=== PATIENT | female | born 1950 | race Caucasian/White ===

== ENCOUNTER → 2019-04-13 | Outpatient (CLI) | payer MEDICARE, OTHER ==
[~2019-04-13] MED LIST: ACET500T68 PO; AMOX1TAB11 PO; ASCO10002 PO; ASPI-630 PO; CA C1TAB36 PO; CLOP75TA PO; DULO60CA6 PO; LIDO700A21 TP; LOVA20TA2 PO; METH750T2 PO; METO-239 PO; OMEG100021 PO; OXYC1TAB15 PO; OXYC5CAP PO; OXYM30SP17 NS; PANT20TA2 PO; POLY17PO29 PO; PREN1TAB58 PO; UBID100C26 PO; [UNRECOGNIZED DRUG - REMARK] TP
[2019-04-13 16:06] LABS: BASO # 0.1 x10^3/uL (0.0-0.2); BASO % 1 % (0-3); EOS # 0.2 x10^3/uL (0.0-0.7); EOS % 2 % (0-3); HEMATOCRIT 36.1 % (36.0-47.0); LYMPH # 1.6 x10^3/uL (1.0-4.8); LYMPH % 21 % (24-48); MEAN CORPUSCULAR HEMOGLOBIN 33 pg (25-35); MEAN CORPUSCULAR HGB CONC 33 g/dL (31-37); MEAN CORPUSCULAR VOLUME 98 fL (79-100); MONO # 0.6 x10^3/uL (0.0-1.1); MONO % 9 % (0-9); NEUT # 4.9 x10^3/uL (1.8-7.7); NEUT % 67 % (31-73); PLATELET COUNT 318 x10^3/uL (140-400); RED BLOOD COUNT 3.68 x10^6/uL (3.50-5.40); RED CELL DISTRIBUTION WIDTH 13.7 % (11.5-14.5); WHITE BLOOD COUNT 7.3 x10^3/uL (4.0-11.0)
[2019-04-13 16:15] LABS: BILIRUBIN,URINE NEGATIVE (NEG); CLARITY,URINE CLEAR; COLOR,URINE YELLOW; NITRITE,URINE NEGATIVE (NEG); PROTEIN,URINE NEGATIVE (NEG-TRACE); UROBILINOGEN,URINE 0.2 mg/dL (0.2 mg/dL)
[2019-04-13 16:16] LABS: PROTHROMBIN TIME PATIENT 12.6 SEC (11.7-14.0)
[2019-04-13 16:33] LABS: ALBUMIN 3.6 g/dL (3.4-5.0); ALBUMIN/GLOBULIN RATIO 0.9 (1.0-1.7); CALCIUM 9.6 mg/dL (8.5-10.1); CREATININE 1.2 mg/dL (0.6-1.0); GFR 44.8; POTASSIUM 4.2 mmol/L (3.5-5.1); TOTAL BILIRUBIN 0.2 mg/dL (0.2-1.0); TOTAL PROTEIN 7.5 g/dL (6.4-8.2)
[2019-04-13 16:45] LABS: BACTERIA,URINE 0 /HPF (0-FEW); RBC,URINE 0 /HPF (0-2); WBC,URINE OCC /HPF (0-4)
[2019-04-13 16:46] LABS: SQUAMOUS EPITHELIAL CELL,UR OCC /LPF
== END ==
LOC: SURGPAT 13:35
PROVIDERS: ATTEND Neurological Surgery
DX: Z01.812 Encounter for preprocedural laboratory examination (principal); M48.062 Spinal stenosis, lumbar region with neurogenic claudication; M43.16 Spondylolisthesis, lumbar region; J44.9 Chronic obstructive pulmonary disease, unspecified; I10 Essential (primary) hypertension; D64.9 Anemia, unspecified; Z95.818 Presence of other cardiac implants and grafts; Z68.30 Body mass index [BMI] 30.0-30.9, adult; Z87.891 Personal history of nicotine dependence; Z85.9 Personal history of malignant neoplasm, unspecified; Z86.2 Personal history of diseases of the blood and blood-forming organs and certain disorders involving the immune mechanism; Z86.79 Personal history of other diseases of the circulatory system; Z87.39 Personal history of other diseases of the musculoskeletal system and connective tissue
CPT/HCPCS: 36415; 80053; 81001; 82306; 85025; 85610; 85730; 87641

== ENCOUNTER 2019-04-16 10:30 | Inpatient (IN) | payer MEDICARE, OTHER ==
[~2019-04-16] VITALS: Ht 165.1 cm; Wt 83.4 kg
[~2019-04-16 10:30] MED LIST changes: -METH750T2 PO; -OXYC1TAB15 PO
--- NOTE | 2019-04-17 15:43 | HP ---
ADMIT DATE: 04/20/2019 PREOPERATIVE HISTORY AND PHYSICAL DATE OF SURGERY: 04/20/2019 HISTORY OF PRESENT ILLNESS: The patient is a pleasant 68-year-old who has difficulty with left-sided posterior thigh and leg pain. She also notices bladder control issues. The problem has been present for several years and becoming worse over the last 4 years. A number of years ago, she underwent surgery. She has significant cardiac difficulties resulting in multiple stents. She says that currently she is doing well and has been cleared for surgery. Currently, sitting or bending increase her pain. The majority of the pain is in her left buttock, posterolateral thigh and leg pain. Standing increases her pain. She takes Percocet and Tylenol. She has had epidural steroid injections as recently as 1 week ago. She says normally that helped her for a week to a month or two. PAST MEDICAL HISTORY: Anemia, arthritis, bleeding disorders, cancer, chest pain, COPD, cold sores or fever blisters, excessive bleeding, heart attack and failure, heart trouble and disease, hypertension, osteoporosis, scarlet fever, serious infection, thyroid disease, tonsillitis, tumors or growth. PAST SURGICAL HISTORY: Cardiac stent in 2005, cancer surgery in 2014. FAMILY HISTORY: Cancer, diabetes, heart disease, hypertension, NV at an early age and spine problems. SOCIAL HISTORY: She is retired. . Exercises daily. Denies substance abuse. Former smoker. ALLERGIES: PENICILLIN potentially. CURRENT MEDICATIONS: Plavix, metoprolol, pantoprazole, lovastatin, duloxetine, oxycodone, aspirin, calcium plus vitamin D, vitamin, fish oil, CoQ10, vitamin C, and Tylenol. REVIEW OF SYSTEMS: A 12-point review of systems was obtained and is noncontributory except that mentioned above. PHYSICAL EXAMINATION: NEUROSURGERY EXAMINATION: GENERAL APPEARANCE: Alert, pleasant, in no acute distress. HEAD: Normocephalic, atraumatic. SKIN: Warm and dry. MUSCULOSKELETAL: Lumbar paraspinal muscle bulk is normal, restricted range of motion of lumbar spine, [id number] tenderness of lower lumbar spine with palpation, normal range of motion of the lower extremities bilaterally. EXTREMITIES: No clubbing, cyanosis or edema. NEUROLOGIC: Alert and oriented x 3, normal recent and remote memory. Strength 5/5 in bilateral lower extremities, sensory is intact to light touch in bilateral lower extremities, reflexes were present and symmetric in lower extremities bilaterally, negative straight leg raising bilaterally, ambulates with a cane. IMAGING: She has a marked central canal stenosis at L4-L5. There is also spondylolisthesis of L4 and L5, which is shown on lumbar flexion and extension films. This does demonstrate motion. ASSESSMENT: 1. Spinal stenosis, lumbar region with neurogenic claudication. 2. Spondylolisthesis, lumbar region. PLAN: I believe her problems are related to stenosis and motion at L4-L5. My recommendation is wide decompression at this level combined with posterior instrumentation, posterior lateral fusion as well as anterior diskectomy and fusion. Presurgical clearance was obtained. I did discuss with her the surgery rationale, technique, risks, and expected postoperative course. She understands. She would like to go ahead. We will make the arrangements. PRETTY MCDONALD MD DR: ZAID/jose JOB#: [id number] / [id number] SANDRA
[2019-04-20] VITALS (10 sets, daily range): BP systolic 102–125; BP diastolic 59–80
[2019-04-20] MEDS ORDERED: BACITRACIN 50,000 UNIT in IV NORMAL SALINE 1000ML BAG 1,000 ML IRR ONE (06:00)
[2019-04-20] MEDS ORDERED: BUPIVACAINE-EPI 0.5%-1:200000 MPF 30 ML VIAL. INJ ONE (06:30)
[2019-04-20] MEDS ORDERED: fentaNYL PF VIAL 100 MCG/2 ML VIAL IV PRN (07:00)
[2019-04-20] MEDS ORDERED: LIDOCAINE 1% PF 2 ML VIAL. ID PRN (07:00)
[2019-04-20] MEDS ORDERED: PROCHLORPERAZINE 10 MG/2 ML VIAL. IV PRN (07:00)
[2019-04-20] MEDS ORDERED: ONDANSETRON PF 4 MG/2 ML VIAL. IV PRN ×2 (07:00→15:45)
[2019-04-20] MEDS ORDERED: HYDROmorphone 2 MG/ML VIAL IV PRN (07:00)
[2019-04-20] MEDS ORDERED: IV RINGERS,LACTATED 1000ML 1,000 ML IV SCH (07:00)
[2019-04-20] MEDS ORDERED: KETOROLAC 60 MG/2 ML VIAL. ONE (07:32)
[2019-04-20] MEDS ORDERED: GELATIN SPONGE SIZE 100. ONE (07:32)
[2019-04-20] MEDS ORDERED: THROMBIN TOPICAL 20,000 UNIT SPRAY.SYRN KIT TP ONE ×2 (07:33→08:09)
[2019-04-20] MEDS ORDERED: PROPOFOL 100 ML IV ONE (09:48)
[2019-04-20] MEDS ORDERED: fentaNYL PF VIAL 100 MCG/2 ML VIAL ONE (09:57)
[2019-04-20] MEDS ORDERED: ROCURONIUM 50 MG/5 ML VIAL. ONE (09:57)
[2019-04-20] MEDS ORDERED: PROPOFOL 20 ML IV ONE (09:58)
[2019-04-20] MEDS ORDERED: LIDOCAINE 2% PF 5 ML VIAL. ONE (09:58)
[2019-04-20] MEDS ORDERED: PHENYLEPHRINE 10 MG/ML VIAL. ONE ×2 (09:58→13:45)
[2019-04-20] MEDS ORDERED: REMIFENTANIL 2 MG VIAL. IV ONE ×2 (09:58→14:28)
[2019-04-20] MEDS ORDERED: MIDAZOLAM HCL/PF 2 MG/2 ML VIAL. ONE (09:58)
[2019-04-20] MEDS ORDERED: ONDANSETRON PF 4 MG/2 ML VIAL. ONE (09:58)
[2019-04-20] MEDS ORDERED: DEXAMETHASONE SOD PHOS 20 MG/5 ML VIAL. ONE (09:58)
[2019-04-20] MEDS ORDERED: hydrALAZINE 20 MG/ML VIAL. ONE (10:58)
--- NOTE | 2019-04-20 11:23 | RAD ---
Examination: CT LUMBAR SPINE WO CONTRAST History: Lumbar stenosis Comparison/Correlation: None Findings: Examination of the lumbar spine were obtained without contrast. Sagittal and coronal reformatted images were provided. Echo images of the lumbar spine were obtained without contrast. Sagittal and coronal reformatted images were obtained. T12-L1: Unremarkable L1-2: Severe disc space narrowing. Endplate sclerosis. Mild right neural foraminal stenosis. Mild facet joint degenerative hypertrophy on the right. No spinal canal stenosis. L2-3: Mild disc space narrowing with significant vacuum phenomenon. Concentric disc bulge is present with less than 50 percent spinal canal stenosis. Ligamentum flavum hypertrophy and facet joint degenerative hypertrophy with remodeling is noted. L3-4: Slight concentric disc bulge is present. Mild spinal canal stenosis with facet joint hypertrophy and ligamentum flavum hypertrophy. L4-5: Anterolisthesis of L4 over L5 by less than with vacuum phenomenon. Concentric disc bulge is present. Spinal canal stenosis is severe. Facet joint degenerative hypertrophy and minimal vacuum phenomenon is evident. L5-S1: Moderate to severe space narrowing is present. Vacuum phenomenon is notable. Moderate spinal canal stenosis. Bilateral sacroiliac joint subtle levo convexity of the lumbar spine is present. Vertebral body heights. No fracture or bony destruction. Significant calcific involvement of the distal abdominal aorta and iliac arteries is evident. This is especially notable involving the left proximal external iliac artery where the possibility of high-grade stenosis is suspected on this noncontrast exam. Impression: Advanced degenerative changes. Spinal canal stenosis is present especially at L4-5. Spinal canal stenosis of a lesser extent is evident at L2-3 and L3-4. Mild anterolisthesis of L4 in relation to L5. See a faint calcific involvement of the proximal left external iliac artery with suggestion of high-grade stenosis. Correlate clinically in order to determine the need for further imaging with CTA examination. PQRS Compliance Statement: One or more of the following individualized dose reduction techniques were utilized for this examination: 1. Automated exposure control 2. Adjustment of the mA and/or kV according to patient size 3. Use of iterative reconstruction technique Electronically signed by: Haresh Ware MD (04/20/2019 11:20 AM) [facility]
[2019-04-20] MEDS ORDERED: GLYCOPYRROLATE 1 MG/5 ML VIAL. ONE (13:31)
[2019-04-20] MEDS ORDERED: PROPOFOL 0 ML IV ONE (14:02)
[2019-04-20] MEDS ORDERED: 0.9 % SODIUM CHLORIDE 20 ML VIAL. IJ ONE ×2 (14:28→14:38)
[2019-04-20] MEDS ORDERED: ceFAZolin SODIUM 1 GM VIAL ONE (14:38)
[2019-04-20] MEDS: fentaNYL PF VIAL 100 MCG/2 ML VIAL IV PRN ×2 (15:34→15:40)
[2019-04-20] MEDS: MORPHINE SULFATE 2 MG/ML VIAL. IV PRN ×2 (15:35→15:47)
[2019-04-20] MEDS ORDERED: CALCIUM CARBONATE 500 MG TAB.CHEW PO PRN (15:45)
[2019-04-20] MEDS ORDERED: diphenhydrAMINE HCL 25 MG CAPSULE PO PRN (15:45)
[2019-04-20] MEDS ORDERED: MAG HYDROX/ALUMINUM HYD/SIMETH 30 ML ORAL.SUSP PO PRN (15:45)
[2019-04-20] MEDS ORDERED: 0.9 % SODIUM CHLORIDE 10 ML DISP.SYRIN. IV PRN (15:45)
[2019-04-20] MEDS ORDERED: ACETAMINOPHEN 325 MG TABLET. PO PRN (15:45)
[2019-04-20] MEDS ORDERED: MAGNESIUM HYDROXIDE 2,400 MG/30 ML ORAL.SUSP. PO PRN (15:45)
[2019-04-20] MEDS: fentaNYL PF VIAL 100 MCG/2 ML VIAL IVP PRN (16:24)
[2019-04-20] MEDS: METHOCARBAMOL 750 MG TABLET PO PRN (16:25)
[2019-04-20] MEDS: POTASSIUM CL 20MEQ D5-0.45NACL 1,000 ML IV SCH (16:25)
[2019-04-20] MEDS: CALCIUM CARB/VIT D3 500/200 TABLET. PO SCH (16:31)
[2019-04-20] MEDS: ceFAZolin SODIUM IV Push 1 GM VIAL. IVP SCH (16:34)
[2019-04-20] MEDS: oxyCODONE/APAP 5/325 1 TAB TABLET PO PRN (17:36)
[2019-04-20] MEDS ORDERED: FLU VAX QS 2019-20 (36MOS+)/PF 0.5 ML SYRINGE. VAX IM ONE (19:00)
[2019-04-20] MEDS: OXYMETAZOLINE 0.05% NASAL SPRAY 30ML BOTTLE. NS SCH (20:58)
[2019-04-20] MEDS: DOCUSATE SODIUM 100 MG CAPSULE. PO SCH (20:58)
[2019-04-20] MEDS: AMOXICILLIN/K CLAV 875/125MG TABLET. PO SCH (20:58)
[2019-04-20] MEDS ORDERED: METOPROLOL SUCC 24HR ER 25 MG TAB.ER.24H. PO SCH (21:00)
[2019-04-20] MEDS: ACETAMINOPHEN 500 MG TABLET PO SCH (21:00)
[2019-04-20] MEDS ORDERED: ATORVASTATIN CALCIUM 10 MG TABLET. PO SCH (21:00)
[2019-04-20] MEDS ORDERED: ceFAZolin SODIUM IV Push 1 GM VIAL. IVP SCH (22:00)
[2019-04-21] MEDS: oxyCODONE/APAP 5/325 1 TAB TABLET PO PRN ×4 (00:13→12:06)
[2019-04-21] MEDS: ceFAZolin SODIUM IV Push 1 GM VIAL. IVP SCH ×2 (03:02→11:18)
[2019-04-21 03:15] VITALS: BP 131/80
[2019-04-21] MEDS: METHOCARBAMOL 750 MG TABLET PO PRN ×2 (03:44→08:09)
[2019-04-21 06:17] VITALS: BP 116/59
[2019-04-21] MEDS: POTASSIUM CL 20MEQ D5-0.45NACL 1,000 ML IV SCH (06:20)
[2019-04-21] MEDS ORDERED: PANTOPRAZOLE 40 MG TABLET.DR. PO SCH (07:30)
--- NOTE | 2019-04-21 08:00 | NUR ---
rests quietly in bed. she ambulated in hallway earlier and tolerated well. she does complain of left thigh numbness and headache. she has good sensation, motion and pulses bilateral lower extremities. dressing to back has scant amount of serous drainage.
[2019-04-21] MEDS: AMOXICILLIN/K CLAV 875/125MG TABLET. PO SCH (08:09)
[2019-04-21] MEDS: CALCIUM CARB/VIT D3 500/200 TABLET. PO SCH (08:09)
[2019-04-21] MEDS: DOCUSATE SODIUM 100 MG CAPSULE. PO SCH (08:09)
[2019-04-21 08:13] VITALS: BP 102/62
[2019-04-21] MEDS: OXYMETAZOLINE 0.05% NASAL SPRAY 30ML BOTTLE. NS SCH (08:41)
[2019-04-21] MEDS: ACETAMINOPHEN 500 MG TABLET PO SCH (08:42)
[2019-04-21] MEDS ORDERED: ASCORBIC ACID 500 MG TABLET PO SCH (09:00)
[2019-04-21] MEDS ORDERED: POLYETHYLENE GLYCOL 3350 17 GM PACKET. PO SCH (09:00)
[2019-04-21] MEDS ORDERED: LIDOCAINE (700MG/PATCH) PATCH. TP SCH (09:00)
[2019-04-21] MEDS ORDERED: DULoxetine HCL 30 MG CAPSULE.DR PO SCH (09:00)
[2019-04-21] MEDS ORDERED: MULTIVITAMIN with MINERAL TABLET. PO SCH (09:00)
[2019-04-21] MEDS ORDERED: ASPIRIN CHEWABLE 81 MG TABLET. PO SCH (09:00)
[2019-04-21] MEDS ORDERED: METH750T2 PO (11:14)
[2019-04-21] MEDS ORDERED: OXYC1TAB15 PO (11:14)
--- NOTE | 2019-04-21 11:17 | DISCH ---
DISCHARGE INSTRUCTIONS Condition on Discharge Condition on Discharge: Stable Activity After Discharge Activity Instructions for Disc: Activity as tolerated, Avoid exertion, Walk in house Other activity instructions: ambulation on exercise;gradually increase time and distance Bathing Instructions: Shower-keep dressing dry, No Tub Bath until see Lifting Instructions after Dis: No heavy lifting, No pulling or pushing, Do not lift >10 pounds Exercise Instruction after Dis: Progress as tolerated Driving Instructions after Dis: No driving for 2 weeks Weight Bearing Status after Di: No restrictions, Full weight bearing, As tolerated Diet after Discharge Diet after Discharge: Regular Wound Incision Care Wound/Incision Care: Ice to area for comfort, Keep wound/cast CDI, Keep wound elevated Other wound/incision instructi: may remove dressing after shower if no drainage may leave off Wound Care Equipment: Dressings Checks after Discharge DC Comment: increase fruits, vegetables and fiber; attempt Bm q 2-3 days Contacting the after DC Call your doctor for: Concerns you may have Follow-Up Follow Up With: call [phone] for a 2 week post op appt with Dr. Mcdonald's nurse Treatment/Equipment after DC Adaptive Equipment Issued: Brace/splint PRETTY MCDONALD MD Apr 21, 2019 11:17
--- NOTE | 2019-04-21 11:21 | PDOC ---
PROGRESS NOTES Subjective Subjective POD #1 up ambulating in halls leg pain resolved c/o incisional pain, controlled with medication Objective Objective Vital Signs Date Time Temp Pulse Resp B/P (MAP) Pulse Ox O2 Delivery O2 Flow Rate FiO2 04/21/19 08:13 82 102/62 (75) Room Air 04/21/19 07:30 20 04/21/19 06:31 95 2.5 04/21/19 06:17 98.6 98.6 Intake and Output 04/21/19 06:59 Intake Total 2020 ml Output Total 2275 ml Balance -255 ml Intake Oral 820 ml IV Total 1200 ml Output Urine Total 2200 ml Estimated Blood Loss 75 ml # Voids 1 Physical Exam General: Alert, Oriented X3, Cooperative, No acute distress MUSCULOSKELETAL: Other (MC) Neuro: Normal speech Skin: Other (dressing dry and intact) Plan Plan of Care dc home f/u 2 weeks Comment Review of Relevant I have reviewed the following items roxie (where applicable) has been applied. Medications Current Medications Ondansetron HCl (Zofran) 4 mg PRN Q6HRS PRN IV NAUSEA/VOMITING Last administered on 04/20/19at 16:33; Start 04/20/19 at 07:00; Stop 04/20/19 at 19:00; Status DC Fentanyl Citrate (Fentanyl 2ml Vial) 25 mcg PRN Q5MIN PRN IV MILD PAIN 1-3; Start 04/20/19 at 07:00; Stop 04/20/19 at 19:00; Status DC Fentanyl Citrate (Fentanyl 2ml Vial) 50 mcg PRN Q5MIN PRN IV MODERATE TO SEVERE PAIN Last administered on 04/20/19at 15:40; Start 04/20/19 at 07:00; Stop 04/20/19 at 19:00; Status DC Morphine Sulfate (Morphine Sulfate) 1 mg PRN Q10MIN PRN IV SEVERE PAIN 7-10 Last administered on 04/20/19at 15:47; Start 04/20/19 at 07:00; Stop 04/20/19 at 19:00; Status DC Ringer's Solution 1,000 ml @ 30 mls/hr Q24H IV Last administered on 04/20/19at 08:26; Start 04/20/19 at 07:00; Stop 04/20/19 at 18:59; Status DC Lidocaine HCl (Xylocaine-Mpf 1% 2ml Vial) 2 ml PRN 1X PRN ID PRIOR TO IV START; Start 04/20/19 at 07:00; Stop 04/20/19 at 19:00; Status DC Hydromorphone HCl (Dilaudid) 0.5 mg PRN Q10MIN PRN IV SEV PAIN, Second choice; Start 04/20/19 at 07:00; Stop 04/20/19 at 19:00; Status DC Prochlorperazine Edisylate (Compazine) 5 mg PACU PRN PRN IV NAUSEA, MRX1; Start 04/20/19 at 07:00; Stop 04/20/19 at 19:00; Status DC Cefazolin Sodium/ Dextrose 50 ml @ 100 mls/hr 1X PREOP PRN IV PRIOR TO PROCEDURE Last administered on 04/20/19at 11:10; Start 04/20/19 at 06:00; Stop 04/20/19 at 16:27; Status DC Bupivacaine HCl/ Epinephrine Bitart (Sensorcain-Epi 0.5%-1:517016 Mpf) 30 ml 1X ONCE INJ Last administered on 04/20/19at 11:38; Start 04/20/19 at 06:30; Stop 04/20/19 at 06:31; Status DC Bacitracin 31071 unit/Sodium Chloride 1,000 ml @ 1,000 mls/hr 1X ONCE IRR Last administered on 04/20/19at 11:38; Start 04/20/19 at 06:00; Stop 04/20/19 at 06:59; Status DC Gelatin (Gelfoam Size 100) 1 each STK-MED ONCE .ROUTE Last administered on 04/20/19at 11:38; Start 04/20/19 at 07:32; Stop 04/20/19 at 07:33; Status DC Ketorolac Tromethamine (Toradol Im) 60 mg STK-MED ONCE .ROUTE Last administered on 04/20/19at 11:38; Start 04/20/19 at 07:32; Stop 04/20/19 at 07:33; Status DC Thrombin 20,000 unit STK-MED ONCE TP Last administered on 04/20/19at 11:38; Start 04/20/19 at 07:33; Stop 04/20/19 at 07:33; Status DC Thrombin 20,000 unit STK-MED ONCE TP ; Start 04/20/19 at 08:09; Stop 04/20/19 at 08:10; Status DC Propofol 100 ml @ As Directed STK-MED ONCE IV ; Start 04/20/19 at 09:48; Stop 04/20/19 at 09:48; Status DC Fentanyl Citrate (Fentanyl 2ml Vial) 100 mcg STK-MED ONCE .ROUTE ; Start 04/20/19 at 09:57; Stop 04/20/19 at 09:58; Status DC Rocuronium [place] (Zemuron) 50 mg STK-MED ONCE .ROUTE ; Start 04/20/19 at 09:57; Stop 04/20/19 at 09:58; Status DC Remifentanil HCl (Ultiva) 2 mg STK-MED ONCE IV ; Start 04/20/19 at 09:58; Stop 04/20/19 at 09:58; Status DC Midazolam HCl (Versed) 2 mg STK-MED ONCE .ROUTE ; Start 04/20/19 at 09:58; Stop 04/20/19 at 09:58; Status DC Propofol 20 ml @ As Directed STK-MED ONCE IV ; Start 04/20/19 at 09:58; Stop 04/20/19 at 09:59; Status DC Lidocaine HCl (Lidocaine Pf 2% Vial) 5 ml STK-MED ONCE .ROUTE ; Start 04/20/19 at 09:58; Stop 04/20/19 at 09:59; Status DC Dexamethasone Sodium Phosphate (Decadron) 20 mg STK-MED ONCE .ROUTE ; Start 04/20/19 at 09:58; Stop 04/20/19 at 09:59; Status DC Ondansetron HCl (Zofran) 4 mg STK-MED ONCE .ROUTE ; Start 04/20/19 at 09:58; Stop 04/20/19 at 09:59; Status DC Phenylephrine HCl (Brooks-Synephrine Inj) 10 mg STK-MED ONCE .ROUTE ; Start 04/20/19 at 09:58; Stop 04/20/19 at 09:59; Status DC Hydralazine HCl (Apresoline Inj) 20 mg STK-MED ONCE .ROUTE ; Start 04/20/19 at 10:58; Stop 04/20/19 at 10:58; Status DC Glycopyrrolate (Robinul) 1 mg STK-MED ONCE .ROUTE ; Start 04/20/19 at 13:31; Stop 04/20/19 at 13:32; Status DC Phenylephrine HCl (Brooks-Synephrine Inj) 10 mg STK-MED ONCE .ROUTE ; Start 04/20/19 at 13:45; Stop 04/20/19 at 13:45; Status DC Propofol 0 ml @ As Directed STK-MED ONCE IV ; Start 04/20/19 at 14:02; Stop 04/20/19 at 14:02; Status DC Remifentanil HCl (Ultiva) 2 mg STK-MED ONCE IV ; Start 04/20/19 at 14:28; Stop 04/20/19 at 14:28; Status DC Sodium Chloride (SODIUM CHLORIDE 20ml) 20 ml STK-MED ONCE IJ ; Start 04/20/19 at 14:28; Stop 04/20/19 at 14:28; Status DC Sodium Chloride (SODIUM CHLORIDE 20ml) 20 ml STK-MED ONCE IJ ; Start 04/20/19 at 14:38; Stop 04/20/19 at 14:38; Status DC Cefazolin Sodium (Ancef) 1 gm STK-MED ONCE .ROUTE ; Start 04/20/19 at 14:38; Stop 04/20/19 at 14:38; Status DC Oxymetazoline HCl (Afrin) 2 spray BID NS Last administered on 04/20/19at 20:58; Start 04/20/19 at 21:00 Acetaminophen (Tylenol) 1,000 mg TID PO Last administered on 04/20/19at 21:00; Start 04/20/19 at 21:00 Amoxicillin/ Clavulanate Potassium (Augmentin 875/ 125mg) 1 tab BID PO Last administered on 04/21/19at 08:09; Start 04/20/19 at 21:00 Aspirin (Children'S Aspirin) 81 mg DAILY PO ; Start 04/21/19 at 09:00 Lidocaine (Lidoderm) 1 patch DAILY TP Last administered on 04/21/19at 08:08; Start 04/21/19 at 09:00 Metoprolol Succinate (Toprol Xl) 25 mg BID PO Last administered on 04/20/19at 20:59; Start 04/20/19 at 21:00 Polyethylene Glycol (miraLAX PACKET) 17 gm DAILY PO Last administered on 04/21/19at 08:42; Start 04/21/19 at 09:00 Multivitamins (Thera M Plus) 1 tab DAILY PO ; Start 04/21/19 at 09:00 Ascorbic Acid (Vitamin C) 1,000 mg DAILY PO ; Start 04/21/19 at 09:00 Calcium/Vitamin D (Oscal D 500mg/ 200uts) 1 tab BIDWMEALS PO Last administered on 04/21/19at 08:09; Start 04/20/19 at 17:00 Duloxetine HCl (Cymbalta) 60 mg DAILY PO ; Start 04/21/19 at 09:00 Atorvastatin Calcium (Lipitor) 5 mg QODAY@2100 PO Last administered on 04/20/19at 20:58; Start 04/20/19 at 21:00 Pantoprazole Sodium (Protonix) 40 mg DAILYAC PO Last administered on 04/21/19at 08:09; Start 04/21/19 at 07:30 Fentanyl Citrate (Fentanyl 2ml Vial) 50 mcg PRN Q2HR PRN IVP PAIN Last a dministered on 04/20/19at 16:24; Start 04/20/19 at 15:45 Acetaminophen (Tylenol) 650 mg PRN Q6HRS PRN PO MILD PAIN / TEMP; Start 04/20/19 at 15:45 Al Hydroxide/Mg Hydroxide (Mylanta Plus Xs) 30 ml PRN Q3HRS PRN PO HEARTBURN / GAS; Start 04/20/19 at 15:45 Calcium Carbonate/ Glycine (Tums) 500 mg PRN Q3HRS PRN PO INDIGESTION; Start 04/20/19 at 15:45 Diphenhydramine HCl (Benadryl) 25 mg PRN Q6HRS PRN PO ITCHING; Start 04/20/19 at 15:45 Sodium Chloride (Normal Saline Flush) 3 ml QSHIFT PRN IV AFTER MEDS AND BLOOD DRAWS; Start 04/20/19 at 15:45 Potassium Chloride/Dextrose/ Sod Cl 1,000 ml @ 75 mls/hr [id number] IV Last administered on 04/20/19at 16:25; Start 04/20/19 at 17:00 Oxycodone/ Acetaminophen (Percocet 5/325) 1 tab PRN Q4HRS PRN PO MILD PAIN, 1ST CHOICE Last administered on 04/21/19at 00:13; Start 04/20/19 at 15:45 Oxycodone/ Acetaminophen (Percocet 5/325) 2 tab PRN Q4HRS PRN PO MODERATE PAIN, SEVERE PAIN Last administered on 04/21/19at 06:31; Start 04/20/19 at 15:45 Methocarbamol (Robaxin) 750 mg TID PRN PO MUSCLE SPASMS Last administered on 04/21/19 08:09; Start 04/20/19 at 15:45 Docusate Sodium (Colace) 100 mg BID PO Last administered on 04/21/19at 08:09; Start 04/20/19 at 21:00 Magnesium Hydroxide (Milk Of Magnesia) 2,400 mg PRN Q12HR PRN PO CONSTIPATION; Start 04/20/19 at 15:45 Ondansetron HCl (Zofran) 4 mg PRN Q6HRS PRN IV NAUESA, 1ST CHOICE; Start at 15:45 Cefazolin Sodium (Ancef) 1 gm Q8HRS IVP ; Start 04/20/19 at 22:00; Stop 04/21/19 at 14:01; Status UNV Miscellaneous (Lidoderm Patch Removal) 1 ea QHS MC ; Start 04/21/19 at 21:00 Cefazolin Sodium (Ancef) 1 gm Q8H IVP Last administered on 04/21/19at 11:18; Start 04/20/19 at 19:00; Stop 04/21/19 at 11:01; Status DC Influenza Virus Vaccine Quadrival (Afluria Quad 2019-20 (3yr Up) Syringe) 0.5 ml ONCE ONCE VAX IM Last administered on 04/20/19at 20:09; Start 04/20/19 at 19:00; Stop 04/20/19 at 19:01; Status DC Active Scripts Active Reported Amox Tr-K Clv 875-125 Mg Tab (Amoxicillin/Potassium Clav) 1 Each Tablet 1 Tab PO BID Acetaminophen 500 Mg Tablet 1,000 Mg PO TID Protonix (Pantoprazole Sodium) 20 Mg Tablet.dr 40 Mg PO DAILY [thc salve] 1 Applic TP DAILY Vitamins ( Vits W-Ca,Fe,Fa(<1MG)) 1 Each Tablet 1 Each PO DAILY Lidocaine PATCH (Lidocaine) 1 Each Adh..patch 1 Each TP DAILY REMOVE AFTER 12 HOURS Nasal [place] Sinus (Oxymetazoline Hcl) 30 Ml [place] 2 Sprays NS BID Aspirin 81 Mg Tab.chew 81 Mg PO DAILY Oxycodone Hcl 5 Mg Capsule 5 Mg PO PRN TID PRN Miralax (Polyethylene Glycol 3350) 17 Gm Powd.pack 1 Pkt PO DAILY Metoprolol Succinate ( Xl ) (Metoprolol Succinate) 25 Mg Tab.er.24h 25 Mg PO BID Lovastatin 20 Mg Tablet 5 Mg PO QOD Fish Oil 1,000 mg Softgel ([place]-3/Dha/Epa/Fish Oil) 1,000 Mg Capsule 1,000 Mg PO BID Cymbalta (Duloxetine Hcl) 60 Mg Capsule.dr 60 Mg PO DAILY Vitamin C (Ascorbic Acid) 1,000 Mg Tablet 1,000 Mg PO DAILY Calcium + Vit D & K Chew Tab (Ca Carbonate/Vitamin D3/Vit K) 1 Each Tab.chew 1 Each PO BID Clopidogrel (Clopidogrel Bisulfate) 75 Mg Tablet 75 Mg PO DAILY Coq-10 (Ubidecarenone) 100 Mg Capsule 100 Mg PO DAILY Vitals/I & O Vital Sign - Last 24 Hours 04/20/19 04/20/19 04/20/19 04/20/19 15:12 15:12 15:30 15:34 Temp 97.6 97.6 Pulse 102 100 Resp 17 15 16 B/P (MAP) 139/70 129/69 Pulse Ox 97 94 92 O2 Delivery Mask Simple Mask Room Air Room Air O2 Flow Rate 10 10 04/20/19 04/20/19 04/20/19 04/20/19 15:35 15:40 15:44 15:47 Temp 97.4 97.4 Pulse 102 Resp 15 15 16 15 B/P (MAP) 120/43 Pulse Ox 95 94 95 94 O2 Delivery Nasal Cannula Room Air O2 Flow Rate 2 04/20/19 04/20/19 04/20/19 04/20/19 16:00 16:15 16:24 16:30 Temp 97.5 97.5 Pulse 94 91 93 Resp 16 18 16 B/P (MAP) 117/72 116/75 (89) 113/72 (86) Pulse Ox 91 91 93 O2 Delivery Nasal Cannula Nasal Cannula Nasal Cannula Nasal Cannula O2 Flow Rate 2 2.0 2.0 3.0 04/20/19 04/20/19 04/20/19 04/20/19 16:45 16:53 17:00 17:00 Pulse 93 91 Resp 18 18 B/P (MAP) 102/68 (79) 125/72 (89) Pulse Ox 93 93 93 O2 Delivery Nasal Cannula Room Air Room Air Nasal Cannula O2 Flow Rate 2.5 3.0 2.5 04/20/19 04/20/19 04/20/19 04/20/19 17:30 18:00 18:29 19:45 Temp 98.0 98.0 Pulse 89 99 81 93 Resp 20 20 16 20 B/P (MAP) 119/80 (93) 113/72 (86) 118/77 (91) 104/59 (74) Pulse Ox 91 92 92 94 O2 Delivery Nasal Cannula Nasal Cannula Nasal Cannula Nasal Cannula O2 Flow Rate 2.5 2.5 2.5 2.5 04/20/19 04/20/19 04/20/19 04/20/19 19:45 20:45 20:59 22:22 Temp 98.2 98.2 Pulse 87 87 87 Resp 20 B/P (MAP) 107/66 (80) 107/66 109/67 (81) Pulse Ox 95 O2 Delivery Nasal Cannula Nasal Cannula O2 Flow Rate 2.5 2.5 04/21/19 04/21/19 04/21/19 04/21/19 00:13 01:15 03:15 06:17 Temp 97.8 98.6 97.8 98.6 Pulse 68 75 Resp 20 18 20 20 B/P (MAP) 131/80 (97) 116/59 (78) Pulse Ox 94 94 95 96 O2 Delivery Nasal Cannula Nasal Cannula Nasal Cannula Nasal Cannula O2 Flow Rate 2.5 2.5 2.5 2.5 04/21/19 04/21/19 04/21/19 04/21/19 06:31 07:30 08:00 08:13 Pulse 82 Resp 20 20 B/P (MAP) 102/62 (75) Pulse Ox 95 O2 Delivery Nasal Cannula Room Air Room Air Room Air O2 Flow Rate 2.5 Intake and Output 04/20/19 04/20/19 04/21/19 14:59 22:59 06:59 Intake Total 1720 ml 300 ml Output Total 1725 ml 550 ml Balance -5 ml -250 ml ROSEMARY MIGUEL [employer] Apr 21, 2019 11:21
[2019-04-21 11:23] VITALS: BP 125/76
--- NOTE | 2019-04-21 11:45 | NUR ---
reviewed written discharge instructions with patient and . discussed restrictions to activities of daily living such as bathing lifting restrictions driving. demonstrated dressing change and provided dressings. reviewed brace application. both verbalized understanding of these instructions. Addendum: 04/21/19 at 1612 by SHARON CARTER RN ana was given 50 mcg as instructed by Azalia
[2019-04-21] MEDS: fentaNYL PF VIAL 100 MCG/2 ML VIAL IVP PRN (12:05)
[2019-04-21] MEDS ORDERED: PATCH REMOVAL. MC SCH (21:00)
[2019-04-21] MEDS ORDERED: LACTOBACILLUS RHAMNOSUS GG 1 CAPSULE. PO SCH (21:00)
--- NOTE | 2019-04-23 19:07 | PATHOLOGY ---
[facility] Accession Number: [id number] . 01 Material submitted: . vertebral column - LUMBAR DECOMPRESSION AND DISC . 01 Clinical history: . Lumbar stenosis with neurogenic claudication, spondylolisthesis . 02 Diagnosis: "Lumbar decompression and disc", removal: - Fragments of fibrocartilage with degenerative changes. - Scant fragments of unremarkable skeletal muscle. (SKM/db; 04/23/2019) LBQ 04/23/2019 1158 Local . 02 Electronically signed: . Eddie Burris MD, Pathologist NPI- [id number] . 01 Gross description: . The specimen is received in formalin, labeled "Golliher, Lorraine, lumbar decompression and disc" and consists of multiple fibrous fragments of pink-gilmore tissue and bone measuring 4.0 x 3.6 x 0.8 cm in aggregate. A junior sales representative portion is submitted in A1 following decalcification. (SDY; 04/21/2019) SYU/SYU 04/21/2019 1707 Local . 02 Pathologist provided ICD-10: M51.36 . 02 CPT . 890036, 528202 Specimen Comment: A courtesy copy of this report has been sent to Specimen Comment: [phone]. Specimen Comment: Report sent to Performed at: 01 [facility] [address] [facility] [address], [place] [id number] MD Jerome Simms MD Phone: [phone] Performed at: 02 [facility] [address] [id number] MD Gil Carver MD Phone: [phone]
--- NOTE | 2019-05-01 13:25 | OP ---
DATE OF SURGERY: 04/20/2019 PREOPERATIVE DIAGNOSES: 1. Severe lumbar spinal stenosis, L4-L5, with left lumbar radiculopathy. 2. Spondylolisthesis at L4-L5 with motion on flexion and extension images. OPERATION PERFORMED: 1. Lumbar laminectomy from a left direct approach, L4-L5. 2. Posterior instrumentation, L4-L5. 3. Posterolateral fusion L4-L5 with allograft and autograft bone. 4. Anterior discectomy L4-L5 from a lateral oblique approach with placement of interbody fusion cage, packed with allograft bone. The operation was done with multimodality monitoring including EMG, SSEP triggered EMG. We used fluoroscopy, the microscope and microscopic dissection, as well as BrainLAB guidance. SURGEON: Hardeep Mcdonald M.D. MANUAL PLATE FILLER: NICOLE Fraser assisted with the surgery. She assisted with the decompression, instrumentation. OPERATIVE INDICATIONS: The patient is a pleasant 68-year-old woman who developed intractable back and predominant left leg pain along with some bladder control issues. She was found to have the above-mentioned findings on imaging studies and I recommended lumbar decompressive surgery combined with instrumentation and fusion. She understood the surgery and risks, she understood the technique of the operation and she wished to go ahead. DESCRIPTION OF PROCEDURE: Following general endotracheal anesthesia, the patient was positioned prone on the Mohsen table. Lumbar region prepped and draped in the standard fashion. CHETNA hose and AV impulse boots were applied for DVT prophylaxis. A microscope was draped. Fluoroscopy was draped and brought into the field. Monitoring was established. Ancef 2 grams given less than 1 hour prior to initiation of the surgery. Using fluoroscopic guidance, posterior iliac pins were placed in the right iliac crest and the BrainLAB system was initialized. I then made a midline posterior incision, dissected down through skin and subcutaneous tissue, reflected the paraspinal muscles at L4-L5 and placed self-retaining retractor. Beginning on the right side, I drilled into the posterior aspect of the pedicles of L4 and L5 as well as excoriated the transverse processes and lateral facets. I did aspirate 20 mL of bone marrow from the left iliac crest and mixed this with allograft bone and I packed this into the left gutter. I placed, using the Velostacker system, a 6.5 x 45 screws in L4 and L5. I did use reduction screws in L4 and then I switched to the right side in a similar fashion. I placed the pedicle screws in L4 and L5 and this was done in the following fashion at all levels. I drilled in the posterior aspect of the pedicle, I passed the black ball with stimulated monitoring followed by the ball tip probe, followed by tap, and followed by screw placement. Again, I excoriated the transverse processes and lateral facets and at this point, however, I did bring in the microscope and I drilled a very generous left direct laminectomy approach and decompressed the dorsal dura and nerve roots as well as I worked quite far laterally to the left and worked out into the region of the foramen on the left side to ensure that the posterior disc bulging, which was present there, was not markedly compressing the nerve root. I did incise the annulus and performed a discectomy from this approach and fully decompressed the entire region. I then tilted the patient away from me and made an incision in the posterior left flank. I passed the BrainLAB system with a sleeve down to dock at the lateral aspect of the pedicle of L5 and I worked this, then superiorly and entered into the disc space, avoiding the lateral exiting root. I passed the K-wire followed by a dilator, followed by a working channel and I performed discectomy with endplate scrapers and pituitaries from the lateral approach. I then passed a shield to help protect the nerve root and then through this then, first placed trials and then placed a 9 mm interbody fusion cage, which was packed with allograft and autograft bone. The autograft bone, I obtained from the laminectomy. This was released and fluoroscopic images looked quite good. I did pack allograft and autograft bone into the left lateral gutter and then with the rods placed, I gently worked to help decrease the spondylolisthesis as much as possible and the system was torqued in the sequential fashion. I irrigated copiously with antibiotic solution. I had an excellent decompression and instrumentation. I closed the wound in layers with absorbable sutures. The skin was closed with a 4-0 subcuticular stitch. The operation went very well and the patient taken to recovery room in excellent condition with normal strength in lower extremities. I was quite pleased with the surgery. HARDEEP MCDONALD MD DR: ZAID/jose JOB#: [id number] / [id number] SANDRA
== END 2019-04-21 13:00 | disposition home or self-care (01) | DRG 455 ==
LOC: OPSVCIP 04-20 07:44 → EDUNIT# 04-20 10:30 → 4 SOUTHEST 04-20 16:08
PROVIDERS: ADMIT Neurological Surgery; ATTEND Neurological Surgery
PROC: 0SG0071 Fusion of Lumbar Vertebral Joint with Autologous Tissue Substitute, Posterior Approach, Posterior Column, Open Approach (ICD-10-PCS; 2019-04-20)
PROC: 0SB20ZZ Excision of Lumbar Vertebral Disc, Open Approach (ICD-10-PCS; 2019-04-20)
PROC: 01NB0ZZ Release Lumbar Nerve, Open Approach (ICD-10-PCS; 2019-04-20)
PROC: 07DR0ZZ Extraction of Iliac Bone Marrow, Open Approach (ICD-10-PCS; 2019-04-20)
PROC: 4A11X4G Monitoring of Peripheral Nervous Electrical Activity, Intraoperative, External Approach (ICD-10-PCS; 2019-04-20)
PROC: 0SG00A0 Fusion of Lumbar Vertebral Joint with Interbody Fusion Device, Anterior Approach, Anterior Column, Open Approach (ICD-10-PCS; principal; 2019-04-20 10:30)
DX: M48.062 Spinal stenosis, lumbar region with neurogenic claudication (principal); M43.16 Spondylolisthesis, lumbar region; I10 Essential (primary) hypertension; M81.0 Age-related osteoporosis without current pathological fracture; M54.16 Radiculopathy, lumbar region; J44.9 Chronic obstructive pulmonary disease, unspecified; I25.2 Old myocardial infarction; Z95.5 Presence of coronary angioplasty implant and graft; Z83.3 Family history of diabetes mellitus; Z82.49 Family history of ischemic heart disease and other diseases of the circulatory system; Z80.9 Family history of malignant neoplasm, unspecified; Z82.69 Family history of other diseases of the musculoskeletal system and connective tissue; Z87.891 Personal history of nicotine dependence
CPT/HCPCS: 36415; 72131; 76000; 86850; 86900; 86901; 88304; 88311; 90471; 90686; A7015; C1713; J0360; J0690; J0696; J1100; J1885; J2001; J2250; J2270; J2405; J2704; J3010; J3490; J7030; J7120; 97116; 97530; G0378